=== PATIENT | male | born 1975 | race Caucasian/White ===

== ENCOUNTER 2021-03-20 13:26 | Emergency (ER) | payer BC ==
[~2021-03-20] VITALS: Ht 177.8 cm; Wt 165.9 kg
[2021-03-20 13:33] VITALS: TEMP 97.9
[2021-03-20 13:56] VITALS: BP 147/68; PULSE 89
== END 2021-03-20 13:56 | disposition home or self-care (01) ==
LOC: COL.ER 13:26
DX: S05.11XA Contusion of eyeball and orbital tissues, right eye, initial encounter (principal); H11.31 Conjunctival hemorrhage, right eye; W01.198A Fall on same level from slipping, tripping and stumbling with subsequent striking against other object, initial encounter

== ENCOUNTER 2023-04-01 05:49 | Day surgery (SDC) | payer OTHER ==
[~2023-04-01] VITALS: Ht 177.8 cm; Wt 165.8 kg
[2023-04-01] MEDS ORDERED: PRINIVIL40 MG PO (06:33)
[2023-04-01] MEDS ORDERED: HCTZ 25MG TAB25 MG PO (06:34)
[2023-04-01 08:15] VITALS: BP 158/106; PULSE 73; TEMP 97.2
--- NOTE | 2023-04-01 08:15 | NUR ---
Pt returned via cart to recliner in [facility]. VSS-see flowsheet. Warm blanket given, call light in reach. [id number] remain stable. Tolerated oral intake. IV removed and pressure dressing applied. DC teaching completed, verbalized understanding. Taken via wheelchair to private vehicle for dc home with driving/
[2023-04-01 08:30] VITALS: BP 141/86; PULSE 73
[2023-04-01 08:45] VITALS: BP 137/87; PULSE 70
--- NOTE | 2023-04-01 11:22 | NUR ---
0625 Pt ambulatory to bay 4 with a steady gait, breathing even and unlabored. Pt is alert and oriented. Consents reviewed with and signed by pt. IV established. LR infusing via gravity at KVO. Call light in reach. Warm blanket provided.
== END 2023-04-01 08:45 | disposition home or self-care (01) ==
LOC: SDCO 05:49
DX: Z12.11 Encounter for screening for malignant neoplasm of colon (principal); D12.5 Benign neoplasm of sigmoid colon; K63.5 Polyp of colon; D12.2 Benign neoplasm of ascending colon; G47.33 Obstructive sleep apnea (adult) (pediatric); Z80.0 Family history of malignant neoplasm of digestive organs
CPT/HCPCS: J2704; J7120